=== PATIENT | male | born 1995 | race American Indian/Alaskan Native ===

== ENCOUNTER 2018-02-07 14:03 | Emergency (ER) | payer MEDICAID ==
--- NOTE | 2018-02-07 17:40 | Emergency Department Report ---
ED Rash HPI - HPI Chief Complaint: Skin Rash Stated Complaint: ITCHING ALL OVER BODY Time Seen by Provider: 02/07/18 16:46 Duration: 4 Days Location: Chest, Back, Upper Extremities, Lower Extremities Rash Symptoms: Yes Itching, No Facial Swelling, No Tongue/Oral Swelling, No Breathing Difficulties, No Choking Sensation, No Wheezing/Dyspnea, No Peeling, No Blistering, No Fever, No Lightheaded, No Malaise, No Myalgias Severity: mild Other History: This is a 22-year-old male nontoxic, well nourished in appearance , no acute signs of distress presents to the ED with c/o of red bumps that are itching. Patient stated that he went to his grandma's house 4 days ago and stepped in the bed and then woke up with little bumps all over and itching. Patient denies any pus, drainage. Denies any fevers chills, nausea, vomiting, chest pain, front of breath, headache or stiff neck. Patient denies any allergies or significant past medical history. ED Review of Systems ROS: Stated complaint: ITCHING ALL OVER BODY Other details as noted in HPI Constitutional: denies: chills, fever Eyes: denies: eye pain, eye discharge, vision change ENT: denies: ear pain, throat pain Respiratory: denies: cough, shortness of breath, wheezing Cardiovascular: denies: chest pain, palpitations Endocrine: no symptoms reported Gastrointestinal: denies: abdominal pain, nausea, diarrhea Genitourinary: denies: urgency, dysuria Musculoskeletal: denies: back pain, joint swelling, arthralgia Skin: rash. denies: lesions Neurological: denies: headache, weakness, paresthesias Psychiatric: denies: anxiety, depression Hematological/Lymphatic: denies: easy bleeding, easy bruising ED Past Medical Hx - Past Medical History Previous Medical History?: No - Surgical History Additional Surgical History: FACE REPAIR - Social History Smoking Status: Never Smoker Substance Use Type: None - Medications Home Medications: Home Medications Medication Instructions Recorded Confirmed Last Taken Type Triamcinolone 0.1% [Kenalog 0.1% 1 applic TP TID #1 tube 02/07/18 Unknown Rx CREAM] diphenhydrAMINE [Benadryl CAP] 25 mg PO Q6HR PRN #20 capsule 02/07/18 Unknown Rx Rash Exam - Exam General: Vital signs noted. No distress. Alert and acting appropriately. HEENT: No Periorbital Edema, No Conjuctival Injection, No Chemosis, No Perioral Edema, No Tongue Edema, No Uvular Edema, No Compromised Airway, No Drooling Lungs: Yes Good Air Exchange (Normal Breath Sounds), No Wheezes, No Ronchi, No Stridor, No Cough, No Labored Respirations, No Retractions, No Use of Accessory Muscles, No Other Abnormal Lung Sounds Heart: Yes Regular, No Murmur Skin: Yes Other (circular 0.5 cm bumps with itching and redness throughout body consistent with bedbugs), No Urticarial Rash, No Maculopapular Rash, No Morbilliform rash, No Bulla(e), No Excoriations, No Weeping, No Tenderness, No Erythema, No Edema, No Encrustations Other: Positive: Abdomen Normal, Neurologic Normal, Musculoskeletal Normal ED Course Vital Signs 02/07/18 14:37 Temperature 98 F Pulse Rate 63 Respiratory 16 Rate Blood Pressure 111/72 O2 Sat by Pulse 100 Oximetry - Reevaluation(s) Reevaluation #1: 02/07/18 17:37 Patient is speaking in full sentences with no signs of distress noted. ED Medical Decision Making - Medical Decision Making This is a 22-year-old male that presents with bedbugs. Patient was stable was examined by me. Upon examination there is no signs of cellulitis or abscess formation. There is erythema itching and little bumps that is consistent with bite vidal. Patient was educated and received information from up-to-date on how to treat and prevent bedbugs. Patient received Benadryl at discharge and cortisone cream. Patient was referred to Follow-up with a primary care doctor in 3-5 days or if symptoms worsen and continue return to emergency room as soon as possible. At time of discharge, the patient does not seem toxic or ill in appearance. No acute signs of distress noted. Patient agrees to discharge treatment plan of care. No further questions noted by the patient. Critical care attestation.: If time is entered above; I have spent that time in minutes in the direct care of this critically ill patient, excluding procedure time. ED Disposition Clinical Impression: Bedbug bite Qualifiers: Encounter type: initial encounter Qualified Code(s): W57.XXXA - Bitten or stung by nonvenomous insect and other nonvenomous arthropods, initial encounter Disposition: DC-01 TO HOME OR SELFCARE Is pt being admited?: No Does the pt Need Aspirin: No Condition: Stable Instructions: Diphenhydramine (By mouth) Additional Instructions: Follow-up with a primary care doctor in 3-5 days or if symptoms worsen and continue return to emergency room as soon as possible. Prescriptions: diphenhydrAMINE [Benadryl CAP] 25 mg PO Q6HR PRN #20 capsule PRN Reason: itching Triamcinolone 0.1% [Kenalog 0.1% CREAM] 1 applic TP TID #1 tube Referrals: MYLES JOHN MD [Primary Care Provider] - 3-5 Days PRIMARY CARE, [Referring] - 3-5 Days [facility] [place] [Outside] - 3-5 Days [facility] [Outside] - 3-5 Days Forms: Work/School Release Form(ED)
[2018-02-07 18:06] VITALS: BP 112/80
== END 2018-02-07 18:03 | disposition home or self-care (01) ==
LOC: ED 14:03
DX: L29.9 Pruritus, unspecified (principal); W57.XXXA Bitten or stung by nonvenomous insect and other nonvenomous arthropods, initial encounter; Y93.89 Activity, other specified; Y92.89 Other specified places as the place of occurrence of the external cause; Y99.8 Other external cause status
CPT/HCPCS: 99282

== ENCOUNTER 2020-05-19 01:14 | Emergency (ER) | payer SELFPAY ==
--- NOTE | 2020-05-19 02:03 | XRay Report ---
CHEST 1 VIEW INDICATION / CLINICAL INFORMATION: Chest Pain. COMPARISON: None available. FINDINGS: SUPPORT DEVICES: None. HEART / MEDIASTINUM: No significant abnormality. LUNGS / PLEURA: No significant pulmonary or pleural abnormality. No pneumothorax. ADDITIONAL FINDINGS: No significant additional findings. IMPRESSION: 1. No acute findings. Signer Name: Luis Rice MD Signed: 05/19/2020 1:58 AM Workstation Name: [id number]
--- NOTE | 2020-05-19 04:01 | Emergency Department Report ---
ED General Adult HPI - General Chief complaint: Chest Pain Stated complaint: CHEST PAIN, COUGHING UP BLOOD Time Seen by Provider: 05/19/20 03:13 Source: patient Mode of arrival: Ambulatory Limitations: No Limitations - History of Present Illness Initial comments: 25-year-old -[place] male with no significant past medical history presents emergency department complaining of pain to the left chest region which is worse with deep breaths and range of motion reports no hemoptysis no hematemesis no hematochezia. Ports no fever, chills, sweats no palpitations no nausea or vomiting. Pain is is mild currently rates at a 3 out of 10 at max -: Gradual Location: chest Quality: dull Improves with: none Worsens with: none Associated Symptoms: chest pain. denies: cough, loss of appetite, malaise Treatments Prior to Arrival: none - Related Data Previous Rx's Medication Instructions Recorded Last Taken Type Triamcinolone 0.1% [Kenalog 0.1% 1 applic TP TID #1 tube 02/07/18 Unknown Rx CREAM] diphenhydrAMINE [Benadryl CAP] 25 mg PO Q6HR PRN #20 capsule 02/07/18 Unknown Rx Ibuprofen [Ibuprofen 800] 800 mg PO TID PRN #30 tablet 09/03/18 Unknown Rx Ibuprofen [Motrin] 800 mg PO Q8HR PRN #15 tablet 09/03/18 Unknown Rx Polymyxin B Sulf/Trimethoprim 10 ml OP Q4H 10 Days #1 09/03/18 Unknown Rx [Polytrim Eye Drops] Ketorolac [Toradol] 10 mg PO Q6H PRN #10 tablet 05/19/20 Unknown Rx Allergies Allergy/AdvReac Type Severity Reaction Status Date / Time No Known Allergies Allergy Verified 09/03/18 11:52 ED Review of Systems ROS: Stated complaint: CHEST PAIN, COUGHING UP BLOOD Other details as noted in HPI Comment: All other systems reviewed and negative ED Past Medical Hx - Past Medical History Previous Medical History?: No - Surgical History Past Surgical History?: Yes Additional Surgical History: FACE REPAIR - Social History Smoking Status: Never Smoker - Medications Home Medications: Home Medications Medication Instructions Recorded Confirmed Last Taken Type Triamcinolone 0.1% [Kenalog 0.1% 1 applic TP TID #1 tube 02/07/18 Unknown Rx CREAM] diphenhydrAMINE [Benadryl CAP] 25 mg PO Q6HR PRN #20 capsule 02/07/18 Unknown Rx Ibuprofen [Ibuprofen 800] 800 mg PO TID PRN #30 tablet 09/03/18 Unknown Rx Ibuprofen [Motrin] 800 mg PO Q8HR PRN #15 tablet 09/03/18 Unknown Rx Polymyxin B Sulf/Trimethoprim 10 ml OP Q4H 10 Days #1 09/03/18 Unknown Rx [Polytrim Eye Drops] Ketorolac [Toradol] 10 mg PO Q6H PRN #10 tablet 05/19/20 Unknown Rx ED Physical Exam - General Limitations: No Limitations General appearance: alert, in no apparent distress - Head Head exam: Present: atraumatic, normocephalic - Eye Eye exam: Present: normal appearance - ENT ENT exam: Present: mucous membranes moist - Neck Neck exam: Present: normal inspection - Respiratory Respiratory exam: Present: normal lung sounds bilaterally, chest wall tenderness (Tenderness to the left rib region with palpation. No step-off no lifts heaves or thrills. Tenderness with palpation along the rib border). Absent: respiratory distress - Cardiovascular Cardiovascular Exam: Present: regular rate, normal rhythm. Absent: systolic murmur, diastolic murmur, rubs, gallop - GI/Abdominal GI/Abdominal exam: Present: soft, normal bowel sounds - Rectal Rectal exam: Present: deferred - Extremities Exam Extremities exam: Present: normal inspection - Back Exam Back exam: Present: normal inspection - Neurological Exam Neurological exam: Present: alert, oriented X3 - Psychiatric Psychiatric exam: Present: normal affect, normal mood - Skin Skin exam: Present: warm, dry, intact, normal color. Absent: rash ED Course Vital Signs 05/19/20 01:20 Temperature 98.4 F Pulse Rate 76 Respiratory 20 Rate Blood Pressure 117/72 O2 Sat by Pulse 99 Oximetry ED Medical Decision Making - EKG Data EKG shows normal: sinus rhythm Rate: normal - EKG Data Interpretation: normal EKG - Radiology Data Radiology results: report reviewed Chest x-ray is clear Critical care attestation.: If time is entered above; I have spent that time in minutes in the direct care of this critically ill patient, excluding procedure time. ED Disposition Clinical Impression: Costochondral chest pain Disposition: - TO HOME OR SELFCARE Is pt being admited?: No Does the pt Need Aspirin: No Condition: Stable Instructions: Chest Pain (ED) Prescriptions: Ketorolac [Toradol] 10 mg PO Q6H PRN #10 tablet PRN Reason: Pain Referrals: PRIMARY CARE,MD [Primary Care Provider] - 3-5 Days [facility] [Provider Group] - 3-5 Days
[2020-05-19 04:10] VITALS: BP 113/65
== END 2020-05-19 04:09 | disposition home or self-care (01) ==
LOC: ED 01:14
DX: R07.89 Other chest pain (principal); Z79.899 Other long term (current) drug therapy; Z98.890 Other specified postprocedural states
CPT/HCPCS: 71045; 93005; 99283

== ENCOUNTER 2020-06-25 04:56 | Emergency (ER) | payer SELFPAY ==
[2020-06-25 05:06] VITALS: BP 116/66
--- NOTE | 2020-06-25 05:59 | XRay Report ---
EXAMINATION: Bilateral rib radiograph series with PA chest radiograph CLINICAL INFORMATION: Fall. Trauma. COMPARISON: Chest radiograph, 05/19/2020 FINDINGS: There is no evidence of displaced rib fracture. The accompanying PA chest radiograph demonstrates no evidence of acute pleural or parenchymal abnorma lity. IMPRESSION: No evidence of displaced rib fracture or other acute bony abnormality. Signer Name: Kati Hamlin MD Signed: 06/25/2020 5:54 AM Workstation Name: [id number]
[2020-06-25] MEDS ORDERED: ETOMIDATE 20 MG/10 ML INJ IV ONE (06:10)
[2020-06-25] MEDS ORDERED: ROCURONIUM 50 MG/5 ML INJ IV ONE (06:11)
[2020-06-25] MEDS ORDERED: LACTATED RINGERS 1,000 ML ONE (06:16)
[2020-06-25 07:10] LABS: Basophils # (Auto) 0.1 K/mm3 (0.0-0.1); Basophils % (Auto) 0.8 % (0.0-1.8); Eosinophils # (Auto) 0.3 K/mm3 (0.0-0.4); Eosinophils % (Auto) 4.5 % (0.0-4.3); Hematocrit 38.7 % (35.5-45.6); Hemoglobin 12.7 gm/dl (11.8-15.2); Lymphocytes # (Auto) 3.7 K/mm3 (1.2-5.4); Lymphocytes % (Auto) 48.7 % (13.4-35.0); Mean Corpuscular HGB Conc 33 % (32-34); Mean Corpuscular Volume 89 fl (84-94); Monocytes # (Auto) 0.6 K/mm3 (0.0-0.8); Monocytes % (Auto) 7.6 % (0.0-7.3); Platelet Count 176 K/mm3 (140-440); Red Blood Count 4.33 M/mm3 (3.65-5.03); Red Cell Distribution Width 13.9 % (13.2-15.2)
[2020-06-25 07:20] LABS: Alanine Aminotransferase 21 units/L (7-56); Albumin 4.5 g/dL (3.9-5); BUN/Creatinine Ratio 21; Blood Urea Nitrogen 17 mg/dL (9-20); Calcium 9.5 mg/dL (8.4-10.2); Hemolysis Index 10
== END 2020-06-25 09:42 ==
LOC: ED 04:56
DX: R07.81 Pleurodynia (principal); Z53.21 Procedure and treatment not carried out due to patient leaving prior to being seen by health care provider
CPT/HCPCS: 36415; 71111; 80053; 85025; J7120

== ENCOUNTER 2020-06-29 04:10 | Emergency (ER) | payer SELFPAY ==
[2020-06-29 04:18] VITALS: BP 106/70
[2020-06-29 05:05] LABS: Eosinophils % (Auto) 2.3 % (0.0-4.3); Lymphocytes % (Auto) 41.5 % (13.4-35.0); Monocytes % (Auto) 7.9 % (0.0-7.3)
[2020-06-29 05:19] LABS: Alanine Aminotransferase 13 units/L (7-56); Albumin 4.4 g/dL (3.9-5); BUN/Creatinine Ratio 15; Blood Urea Nitrogen 12 mg/dL (9-20); Calcium 9.4 mg/dL (8.4-10.2); Hemolysis Index 5
[2020-06-29 05:21] LABS: Basophils # (Auto) 0.1 K/mm3 (0.0-0.1); Eosinophils # (Auto) 0.2 K/mm3 (0.0-0.4); Hemoglobin 12.3 gm/dl (11.8-15.2); Lymphocytes # (Auto) 3.5 K/mm3 (1.2-5.4); Mean Corpuscular HGB Conc 33 % (32-34); Mean Corpuscular Volume 89 fl (84-94); Monocytes # (Auto) 0.7 K/mm3 (0.0-0.8); Platelet Count 171 K/mm3 (140-440); Red Blood Count 4.14 M/mm3 (3.65-5.03); Red Cell Distribution Width 13.5 % (13.2-15.2)
[2020-06-29 05:36] LABS: Bilirubin,Urine NEG (Negative); Blood,Urine NEG (Negative); Color,Urine Yellow (Yellow); Protein,Urine <15 mg/dL mg/dL (Negative); RBC,Urine < 1.0 /HPF (0.0-6.0); Urobilinogen,Urine < 2.0 mg/dL (<2.0); WBC,Urine < 1.0 /HPF (0.0-6.0)
== END 2020-06-29 06:05 | disposition left against medical advice (07) ==
LOC: ED 04:10
DX: R11.0 Nausea (principal); Z53.21 Procedure and treatment not carried out due to patient leaving prior to being seen by health care provider
CPT/HCPCS: 36415; 80053; 81001; 85025

== ENCOUNTER 2020-06-29 20:05 | Emergency (ER) | payer SELFPAY ==
[2020-06-29 20:17] VITALS: BP 110/62
[2020-06-29] MEDS ORDERED: HYDROcodone/ACETAMINOPHEN 10-325MG TAB PO ONE (20:47)
--- NOTE | 2020-06-29 20:59 | Emergency Department Report ---
ED General Adult HPI - General Chief complaint: Upper Respiratory Infection Stated complaint: WEAK, RIGHT RIB PAIN, DIFFICULTY IN BREATHING Time Seen by Provider: 06/29/20 20:43 Source: patient Mode of arrival: Ambulatory Limitations: No Limitations - History of Present Illness Initial comments: This is a 25-year-old man nontoxic, well nourished in appearance, no acute signs of distress presents to the ED with c/o of generalized weakness and right rib pain times couple days. Patient stated that he hit his rib against a forklift. Patient denies any other trauma. Stated has some coughing. Denies any shortness of breath, fever, chills, nausea, vomiting, headache, stiff neck, abdominal pain, neck or back pain. Denies any other complaints. Denies any allergies. -: days(s) Location: chest, right Radiation: non-radiation Severity scale (0 -10): 8 Quality: aching Consistency: constant Improves with: none Worsens with: other (palpation) Associated Symptoms: cough. denies: confusion, chest pain, diaphoresis, headaches, loss of appetite, malaise, nausea/vomiting, rash, seizure, shortness of breath, syncope, weakness Treatments Prior to Arrival: none - Related Data Previous Rx's Medication Instructions Recorded Last Taken Type Triamcinolone 0.1% [Kenalog 0.1% 1 applic TP TID #1 tube 02/07/18 Unknown Rx CREAM] diphenhydrAMINE [Benadryl CAP] 25 mg PO Q6HR PRN #20 capsule 02/07/18 Unknown Rx Ibuprofen [Ibuprofen 800] 800 mg PO TID PRN #30 tablet 09/03/18 Unknown Rx Ibuprofen [Motrin] 800 mg PO Q8HR PRN #15 tablet 09/03/18 Unknown Rx Polymyxin B Sulf/Trimethoprim 10 ml OP Q4H 10 Days #1 09/03/18 Unknown Rx [Polytrim Eye Drops] Ketorolac [Toradol] 10 mg PO Q6H PRN #10 tablet 05/19/20 Unknown Rx Naproxen 500 mg PO Q12H PRN #12 tablet 06/29/20 Unknown Rx Allergies Allergy/AdvReac Type Severity Reaction Status Date / Time No Known Allergies Allergy Verified 06/29/20 20:10 ED Review of Systems ROS: Stated complaint: WEAK, RIGHT RIB PAIN, DIFFICULTY IN BREATHING Other details as noted in HPI Constitutional: denies: chills, fever Eyes: denies: eye pain, eye discharge, vision change ENT: denies: ear pain, throat pain Respiratory: cough. denies: shortness of breath, wheezing Cardiovascular: denies: chest pain, palpitations Endocrine: no symptoms reported Gastrointestinal: denies: abdominal pain, nausea, diarrhea Genitourinary: denies: urgency, dysuria Musculoskeletal: denies: back pain, joint swelling, arthralgia Skin: denies: rash, lesions Neurological: denies: headache, weakness, paresthesias Psychiatric: denies: anxiety, depression Hematological/Lymphatic: denies: easy bleeding, easy bruising ED Past Medical Hx - Past Medical History Previous Medical History?: No - Surgical History Additional Surgical History: FACE REPAIR - Social History Smoking Status: Current Every Day Smoker Substance Use Type: Alcohol - Medications Home Medications: Home Medications Medication Instructions Recorded Confirmed Last Taken Type Triamcinolone 0.1% [Kenalog 0.1% 1 applic TP TID #1 tube 02/07/18 Unknown Rx CREAM] diphenhydrAMINE [Benadryl CAP] 25 mg PO Q6HR PRN #20 capsule 02/07/18 Unknown Rx Ibuprofen [Ibuprofen 800] 800 mg PO TID PRN #30 tablet 09/03/18 Unknown Rx Ibuprofen [Motrin] 800 mg PO Q8HR PRN #15 tablet 09/03/18 Unknown Rx Polymyxin B Sulf/Trimethoprim 10 ml OP Q4H 10 Days #1 09/03/18 Unknown Rx [Polytrim Eye Drops] Ketorolac [Toradol] 10 mg PO Q6H PRN #10 tablet 05/19/20 Unknown Rx Naproxen 500 mg PO Q12H PRN #12 tablet 06/29/20 Unknown Rx ED Physical Exam - General Limitations: No Limitations General appearance: alert, in no apparent distress - Head Head exam: Present: atraumatic, normocephalic - Eye Eye exam: Present: normal appearance - Neck Neck exam: Present: normal inspection, full ROM. Absent: tenderness, meni ngismus, lymphadenopathy - Respiratory Respiratory exam: Present: normal lung sounds bilaterally, chest wall tenderness (right lateral rib). Absent: respiratory distress, wheezes, rales, rhonchi, stridor, accessory muscle use, decreased breath sounds, prolonged expiratory - Cardiovascular Cardiovascular Exam: Present: regular rate, normal rhythm, normal heart sounds. Absent: bradycardia, tachycardia, irregular rhythm, systolic murmur, diastolic murmur, rubs, gallop - GI/Abdominal GI/Abdominal exam: Present: soft, normal bowel sounds. Absent: distended, tenderness, guarding, rebound, rigid, diminished bowel sounds - Extremities Exam Extremities exam: Present: normal inspection, full ROM - Back Exam Back exam: Present: normal inspection, full ROM. Absent: tenderness, CVA tenderness (R), CVA tenderness (L), muscle spasm, paraspinal tenderness, vertebral tenderness, rash noted - Neurological Exam Neurological exam: Present: alert, oriented X3, normal gait - Psychiatric Psychiatric exam: Present: normal affect, normal mood - Skin Skin exam: Present: warm, dry, intact, normal color. Absent: rash ED Course Vital Signs 06/29/20 20:10 Temperature 98.0 F Pulse Rate 82 Respiratory 18 Rate Blood Pressure 110/62 O2 Sat by Pulse 97 Oximetry - Reevaluation(s) Reevaluation #1: 06/29/20 20:59 Patient is speaking in full sentences with no signs of distress noted. ED Medical Decision Making - Lab Data Result diagrams: 06/29/20 21:54 06/29/20 21:54 Lab Results 06/29/20 06/29/20 Range/Units 21:54 21:54 WBC 8.5 (4.5-11.0) K/mm3 RBC 3.98 (3.65-5.03) M/mm3 Hgb 11.8 (11.8-15.2) gm/dl Hct 35.2 L (35.5-45.6) % MCV 88 (84-94) fl MCH 30 (28-32) pg MCHC 34 (32-34) % RDW 13.5 (13.2-15.2) % Plt Count 168 (140-440) K/mm3 Lymph % (Auto) 48.2 H (13.4-35.0) % Gulf % (Auto) 8.7 H (0.0-7.3) % Eos % (Auto) 3.1 (0.0-4.3) % Baso % (Auto) 1.3 (0.0-1.8) % Lymph # 4.1 (1.2-5.4) K/mm3 Gulf # 0.7 (0.0-0.8) K/mm3 Eos # 0.3 (0.0-0.4) K/mm3 Baso # 0.1 (0.0-0.1) K/mm3 Seg Neutrophils % 38.7 L (40.0-70.0) % Seg Neutrophils # 3.3 (1.8-7.7) K/mm3 Sodium 138 (137-145) mmol/L Potassium 3.5 L (3.6-5.0) mmol/L Chloride 98.9 (98-107) mmol/L Carbon Dioxide 27 (22-30) mmol/L Anion Gap 16 mmol/L BUN 17 (9-20) mg/dL Creatinine 0.7 L (0.8-1.3) mg/dL Estimated GFR > 60 ml/min BUN/Creatinine Ratio 24 % Glucose 102 H (75-100) mg/dL Calcium 9.6 (8.4-10.2) mg/dL - Radiology Data Referring Physician: DEN WOLFF Patient Name: TSEWART ABBASI Date of : 1995 Sex: Male Report Date: 2020-06-29 Report Status: Finalized [facility] [address] [place] [address] XRay Report Signed Patient: STEWART ABBASI MR#: [id number] : 0 1995 Acct:[id number] Age/Sex: 25 / M ADM Date: 06/29/20 Loc: ED Attending Dr: Ordering Physician: DEN WOLFF NP Date of Service: 06/29/20 Procedure(s): XR ribs UNI w PA Chest 3+V RT Accession Number(s): [id number] cc: DEN WOLFF NP Fluoro Time In Minutes: RIGHT RIBS for VIEWS PA CHEST RA DIOGRAPH INDICATION / CLINICAL INFORMATION: Right mid chest pain and cough. COMPARISON: Right ribs 06/25/2020 FINDINGS: RIBS: No acute, displaced right rib fracture or other acute abnormality. Chest: Cardiomediastinal silhouette: Normal cardiac size. Normal mediastinal contours. LUNGS: No acute findings. No pneumothorax. Signer Name: Chuy Hameed MD Signed: 06/29/2020 9:37 PM Workstation Name: [id number] Transcribed By: TL Dictated By: Chuy Hameed MD Electronically Authenticated By: Chuy Hameed MD Signed Date/Time: 06/29/202136 DD/ 35 TD/TT: - Medical Decision Making 25-year-old male that presents with right rib contusion. Patient is stable and was examined by me. Patient is notified of the x-ray results with no questions noted by the patient. Patient's pain is currently under control. Patient stated family member will drive the patient home after discharge. Labs are unremarkable. Patient was instructed to follow-up with a primary care doctor in 3-5 days or if symptoms worsen and continue return to emergency room as soon as possible. At time of discharge, the patient does not seem toxic or ill in romero earance. No acute signs of distress noted. Patient agrees to discharge treatment plan of care. No further questions noted by the patient. Critical care attestation.: If time is entered above; I have spent that time in minutes in the direct care of this critically ill patient, excluding procedure time. ED Disposition Clinical Impression: Contusion of rib on right side Qualifiers: Encounter type: initial encounter Qualified Code(s): S20.211A - Contusion of right front wall of thorax, initial encounter Disposition: - TO HOME OR SELFCARE Is pt being admited?: No Does the pt Need Aspirin: No Condition: Stable Additional Instructions: Follow-up with a primary care doctor in 3-5 days or if symptoms worsen and continue return to emergency room as soon as possible. Prescriptions: Naproxen 500 mg PO Q12H PRN #12 tablet PRN Reason: Pain , Severe (7-10) Referrals: PRIMARY MD [facility] [Primary Care Provider] - 3-5 Days RAJNI WILLS MD [Staff Physician] - 3-5 Days Forms: Work/School Release Form(ED)
--- NOTE | 2020-06-29 21:41 | XRay Report ---
RIGHT RIBS for VIEWS PA CHEST RADIOGRAPH INDICATION / CLINICAL INFORMATION: Right mid chest pain and cough. COMPARISON: Right ribs 06/25/2020 FINDINGS: RIBS: No acute, displaced right rib fracture or other acute abnormality. Chest: Cardiomediastinal silhouette: Normal cardiac size. Normal mediastinal contours. LUNGS: No acute findings. No pneumothorax. Signer Name: Chuy Hameed MD Signed: 06/29/2020 9:37 PM Workstation Name: [id number]
[2020-06-29 22:23] LABS: Basophils # (Auto) 0.1 K/mm3 (0.0-0.1); Basophils % (Auto) 1.3 % (0.0-1.8); Eosinophils # (Auto) 0.3 K/mm3 (0.0-0.4); Eosinophils % (Auto) 3.1 % (0.0-4.3); Hematocrit 35.2 % (35.5-45.6); Hemoglobin 11.8 gm/dl (11.8-15.2); Lymphocytes # (Auto) 4.1 K/mm3 (1.2-5.4); Lymphocytes % (Auto) 48.2 % (13.4-35.0); Mean Corpuscular HGB Conc 34 % (32-34); Mean Corpuscular Volume 88 fl (84-94); Monocytes # (Auto) 0.7 K/mm3 (0.0-0.8); Monocytes % (Auto) 8.7 % (0.0-7.3); Platelet Count 168 K/mm3 (140-440); Red Blood Count 3.98 M/mm3 (3.65-5.03); Red Cell Distribution Width 13.5 % (13.2-15.2)
[2020-06-29 22:43] LABS: Blood Urea Nitrogen 17 mg/dL (9-20); Calcium 9.6 mg/dL (8.4-10.2); Hemolysis Index 10
[2020-06-29 22:53] LABS: BUN/Creatinine Ratio 24
== END 2020-06-29 23:05 | disposition home or self-care (01) ==
LOC: ED 20:05
DX: S20.211A Contusion of right front wall of thorax, initial encounter (principal); F17.200 Nicotine dependence, unspecified, uncomplicated; Z79.899 Other long term (current) drug therapy; Z98.890 Other specified postprocedural states; X58.XXXA Exposure to other specified factors, initial encounter; Y93.89 Activity, other specified; Y92.89 Other specified places as the place of occurrence of the external cause; Y99.8 Other external cause status
CPT/HCPCS: 36415; 80048; 85025

== ENCOUNTER 2020-07-29 22:48 | Emergency (ER) | payer SELFPAY ==
[2020-07-29 23:14] VITALS: BP 112/71
[2020-07-30] MEDS ORDERED: predniSONE 20 MG TAB PO ONE (00:46)
[2020-07-30] MEDS ORDERED: IBUPROFEN 600 MG TAB PO ONE (00:46)
--- NOTE | 2020-07-30 01:09 | Emergency Department Report ---
- General Chief Complaint: Upper Respiratory Infection Stated Complaint: COUGH BODY WEAKNESS SOB Source: patient Mode of arrival: Ambulatory Limitations: No Limitations - History of Present Illness Initial Comments: Patient is a 25-year-old -Chinese male with a history of tobacco abuse who presents to the ED with complaint of acute onset persistent sore throat, diffuse body aches and pains, persistent cough with white phlegm and intermittent wheezing and shortness of breath for the last 1 week. Patient states that he has been taking cugg-[id number] medications with no relief. Patient denies fever, chills, nausea, vomiting, chest pain, headache, abdominal pain, diarrhea, dysuria, change in vision, dizziness, syncope, back pain or testicular pain. MD Complaint: cough, sore throat, other (dyspnea, wheezing) -: Sudden, week(s) (1) Severity: moderate Severity scale (0 -10): 4 Quality: aching Consistency: intermittent Improves With: nothing Worsens With: nothing Context: sick contacts Associated Symptoms: denies other symptoms, rhinorrhea, nasal congestion, sore throat, cough, shortness of breath. denies: fever, chills, myalgias, carol ann phoresis, headache, stiff neck, chest pain, abdominal pain, vomiting, diarrhea, dysuria, rash, right sweats, weight loss, epistaxis, ear pain, other Treatments Prior to Arrival: none - Related Data Previous Rx's Medication Instructions Recorded Last Taken Type Triamcinolone 0.1% [Kenalog 0.1% 1 applic TP TID #1 tube 02/07/18 Unknown Rx CREAM] diphenhydrAMINE [Benadryl CAP] 25 mg PO Q6HR PRN #20 capsule 02/07/18 Unknown Rx Ibuprofen [Ibuprofen 800] 800 mg PO TID PRN #30 tablet 09/03/18 Unknown Rx Ibuprofen [Motrin] 800 mg PO Q8HR PRN #15 tablet 09/03/18 Unknown Rx Polymyxin B Sulf/Trimethoprim 10 ml OP Q4H 10 Days #1 09/03/18 Unknown Rx [Polytrim Eye Drops] Ketorolac [Toradol] 10 mg PO Q6H PRN #10 tablet 05/19/20 Unknown Rx Naproxen 500 mg PO Q12H PRN #12 tablet 06/29/20 Unknown Rx Albuterol Sulfate [Proventil Hfa] 1 - 2 puff IH Q6H PRN #1 hfa.aer.ad 07/30/20 Unknown Rx Azithromycin [Zithromax Z-MICHELLE] 250 mg PO DAILY #6 tablet 07/30/20 Unknown Rx Brompheniramine/Pseudoephed/Dm 5 ml PO Q6H PRN #118 ml 07/30/20 Unknown Rx [Bromfed Dm Cough Syrup] Ibuprofen [Motrin] 600 mg PO Q8H PRN #20 tablet 07/30/20 Unknown Rx predniSONE [Deltasone] 40 mg PO QDAY #12 tab 07/30/20 Unknown Rx Allergies Allergy/AdvReac Type Severity Reaction Status Date / Time No Known Allergies Allergy Verified 06/29/20 20:10 ED Review of Systems ROS: Stated complaint: COUGH BODY WEAKNESS SOB Other details as noted in HPI Constitutional: denies: chills, fever Eyes: denies: eye pain, eye discharge, vision change ENT: congestion. denies: ear pain, throat pain Respiratory: cough, shortness of breath, wheezing Cardiovascular: denies: chest pain, palpitations Endocrine: no symptoms reported Gastrointestinal: denies: abdominal pain, nausea, vomiting, diarrhea Genitourinary: denies: urgency, dysuria Musculoskeletal: denies: back pain, joint swelling, arthralgia Skin: denies: rash, lesions Neurological: denies: headache, weakness, paresthesias Psychiatric: denies: anxiety, depression Hematological/Lymphatic: denies: easy bleeding, easy bruising ED Past Medical Hx - Past Medical History Previous Medical History?: No - Surgical History Past Surgical History?: Yes Additional Surgical History: FACE REPAIR - Social History Smoking Status: Never Smoker Substance Use Type: None - Medications Home Medications: Home Medications Medication Instructions Recorded Confirmed Last Taken Type Triamcinolone 0.1% [Kenalog 0.1% 1 applic TP TID #1 tube 02/07/18 Unknown Rx CREAM] diphenhydrAMINE [Benadryl CAP] 25 mg PO Q6HR PRN #20 capsule 02/07/18 Unknown Rx Ibuprofen [Ibuprofen 800] 800 mg PO TID PRN #30 tablet 09/03/18 Unknown Rx Ibuprofen [Motrin] 800 mg PO Q8HR PRN #15 tablet 09/03/18 Unknown Rx Polymyxin B Sulf/Trimethoprim 10 ml OP Q4H 10 Days #1 09/03/18 Unknown Rx [Polytrim Eye Drops] Ketorolac [Toradol] 10 mg PO Q6H PRN #10 tablet 05/19/20 Unknown Rx Naproxen 500 mg PO Q12H PRN #12 tablet 06/29/20 Unknown Rx Albuterol Sulfate [Proventil Hfa] 1 - 2 puff IH Q6H PRN #1 hfa.aer.ad 07/30/20 Unknown Rx Azithromycin [Zithromax Z-MICHELLE] 250 mg PO DAILY #6 tablet 07/30/20 Unknown Rx Brompheniramine/Pseudoephed/Dm 5 ml PO Q6H PRN #118 ml 07/30/20 Unknown Rx [Bromfed Dm Cough Syrup] Ibuprofen [Motrin] 600 mg PO Q8H PRN #20 tablet 07/30/20 Unknown Rx predniSONE [Deltasone] 40 mg PO QDAY #12 tab 07/30/20 Unknown Rx ED Physical Exam - General Limitations: No Limitations General appearance: alert, in no apparent distress - Head Head exam: Present: atraumatic, normocephalic, normal inspection - Eye Eye exam: Present: normal appearance, PERRL, EOMI Pupils: Present: normal accommodation - ENT ENT exam: Present: normal exam, normal orophraynx, mucous membranes moist, TM's normal bilaterally, normal external ear exam - Neck Neck exam: Present: normal inspection, full ROM - Respiratory Respiratory exam: Present: normal lung sounds bilaterally. Absent: respiratory distress, wheezes, rales, rhonchi, chest wall tenderness, accessory muscle use, decreased breath sounds - Cardiovascular Cardiovascular Exam: Present: regular rate, normal rhythm, normal heart sounds. Absent: systolic murmur, diastolic murmur, rubs, gallop - GI/Abdominal GI/Abdominal exam: Present: soft, normal bowel sounds. Absent: distended, tenderness, guarding, rebound, hyperactive bowel sounds, hypoactive bowel sounds, mass - Extremities Exam Extremities exam: Present: normal inspection, full ROM, normal capillary refill - Back Exam Back exam: Present: normal inspection, full ROM. Absent: tenderness, CVA tenderness (R), CVA tenderness (L), muscle spasm, paraspinal tenderness, vertebral tenderness - Neurological Exam Neurological exam: Present: alert, oriented X3, CN II-XII intact, normal gait, reflexes normal - Psychiatric Psychiatric exam: Present: normal affect, normal mood - Skin Skin exam: Present: warm, dry, intact, normal color. Absent: rash ED Course Vital Signs 07/29/20 23:13 Temperature 98.4 F Pulse Rate 79 Respiratory 16 Rate Blood Pressure 112/71 O2 Sat by Pulse 98 Oximetry ED Medical Decision Making - Radiology Data Radiology results: report reviewed, image reviewed Findings [facility] [address] [place] [address] XRay Report Signed Patient: STEWART ABBASI MR#: [id number] : 1995 Acct:[id number] Age/Sex: 25 / M ADM Date: 07/29/20 Loc: ED Attending Dr: Ordering Physician: EVE MEDRANO Date of Service: 07/30/20 Procedure(s): XR chest routine 2V Accession Number(s): [id number] cc: EVE MEDRANO Fluoro Time In Minutes: CHEST 2 VIEWS INDICATION / CLINICAL INFORMATION: cough. COMPARISON: 05/19/2020 FINDINGS: SUPPORT DEVICES: None. HEART / MEDIASTINUM: No significant abnormality. LUNGS / PLEURA: No significant pulmonary or pleural abnormality. No pneumothorax. ADDITIONAL FINDINGS: No significant additional findings. IMPRESSION: 1. No acute findings. Signer Name: Reno Dong MD Signed: 07/30/2020 1:24 AM Workstation Name: [id number] Transcribed By: LIZA Dictated By: Reno Dong MD Electronically Authenticated By: Reno Dong MD Signed Date/Time: 07/30/20123 DD/ 2 TD/TT: - Medical Decision Making This is a 25-year-old -Chinese male with a history of tobacco abuse who presents to the ED with complaint of acute onset persistent sore throat, diffuse body aches and pains, persistent cough with white phlegm and intermittent wheezing and shortness of breath for the last 1 week. Patient states that he has been taking gire-yky-iczquab medications with no relief. In the ED, patient is alert and oriented x3 and is not in distress. Patient was treated for pain and also given oral prednisone in the ED. Chest x-ray shows no acute cardiopulmonary abnormalities or pneumonitis. Patient was discharged home on medications and advised to follow-up with his primary care physician in 5 to 7 days for reevaluation or return to the ED immediately if symptoms get worse. - Differential Diagnosis Bronchitis; Pneumonia; Pharyngitis; URI Critical care attestation.: If time is entered above; I have spent that time in minutes in the direct care of this critically ill patient, excluding procedure time. ED Disposition Clinical Impression: Acute pharyngitis Qualifiers: Pharyngitis/tonsillitis etiology: other specified organisms Qualified Code(s): J02.8 - Acute pharyngitis due to other specified organisms Acute bronchitis Qualifiers: Bronchitis organism: other organism Qualified Code(s): J20.8 - Acute bronchitis due to other specified organisms Disposition: DC- TO HOME OR SELFCARE Is pt being admited?: No Does the pt Need Aspirin: No Condition: Stable Instructions: Pharyngitis (ED), Acute Bronchitis (ED) Additional Instructions: Take medications with food, drink plenty of fluids and follow up with your Primary Care Physician in 7-10 days for reevaluation. Return to the ED immedia tely if symptoms get worse Prescriptions: Brompheniramine/Pseudoephed/Dm [Bromfed Dm Cough Syrup] 5 ml PO Q6H PRN #118 ml PRN Reason: Cough predniSONE [Deltasone] 40 mg PO QDAY #12 tab Ibuprofen [Motrin] 600 mg PO Q8H PRN #20 tablet PRN Reason: Pain Albuterol Sulfate [Proventil Hfa] 1 - 2 puff IH Q6H PRN #1 hfa.aer.ad PRN Reason: Dyspnea Azithromycin [Zithromax Z-MICHELLE] 250 mg PO DAILY #6 tablet Referrals: [facility] [Provider Group] - 7-10 days Forms: Work/School Release Form(ED) Time of Disposition: :12 Print Language: TELUGU
--- NOTE | 2020-07-30 01:28 | XRay Report ---
CHEST 2 VIEWS INDICATION / CLINICAL INFORMATION: cough. COMPARISON: 05/19/2020 FINDINGS: SUPPORT DEVICES: None. HEART / MEDIASTINUM: No significant abnormality. LUNGS / PLEURA: No significant pulmonary or pleural abnormality. No pneumothorax. ADDITIONAL FINDINGS: No significant additional findings. IMPRESSION: 1. No acute findings. Signer Name: Reno Dong MD Signed: 07/30/2020 1:24 AM Workstation Name: [email or web address]
== END 2020-07-30 03:00 | disposition home or self-care (01) ==
LOC: ED 22:48
DX: J02.9 Acute pharyngitis, unspecified (principal); J20.8 Acute bronchitis due to other specified organisms; Z79.1 Long term (current) use of non-steroidal anti-inflammatories (NSAID); Z79.899 Other long term (current) drug therapy
CPT/HCPCS: 71046; 99283; J7512

== ENCOUNTER 2021-07-12 13:17 | Emergency (ER) | payer SELFPAY ==
[2021-07-12 14:47] VITALS: BP 128/84
--- NOTE | 2021-07-12 15:05 | Emergency Department Report ---
- General Chief Complaint: Upper Respiratory Infection Stated Complaint: COUGH/THROAT PAIN/BACK PAIN Time Seen by Provider: 07/12/21 14:59 Source: patient Mode of arrival: Ambulatory Limitations: No Limitations - History of Present Illness Initial Comments: Patient is a 26-year-old F [place] male who is presenting with 2 days of cough cold congestion and some sinus irritation. Patient states the cough is wet sounding but is nonproductive. Patient states when he coughs he says he has some pain in his ribs. No known exposure to COVID-19 however the patient is not vaccinated. Patient states "I know I don't have Covid because I can still taste and smell". Patient denies nausea vomiting diarrhea headache or sore throat - Related Data Previous Rx's Medication Instructions Recorded Last Taken Type Triamcinolone 0.1% [Kenalog 0.1% 1 applic TP TID #1 tube 02/07/18 Unknown Rx CREAM] diphenhydrAMINE [Benadryl CAP] 25 mg PO Q6HR PRN #20 capsule 02/07/18 Unknown Rx Ibuprofen [Ibuprofen 800] 800 mg PO TID PRN #30 tablet 09/03/18 Unknown Rx Ibuprofen [Motrin] 800 mg PO Q8HR PRN #15 tablet 09/03/18 Unknown Rx Polymyxin B Sulf/Trimethoprim 10 ml OP Q4H 10 Days #1 09/03/18 Unknown Rx [Polytrim Eye Drops] Ketorolac [Toradol] 10 mg PO Q6H PRN #10 tablet 05/19/20 Unknown Rx Naproxen 500 mg PO Q12H PRN #12 tablet 06/29/20 Unknown Rx Albuterol Sulfate [Proventil Hfa] 1 - 2 puff IH Q6H PRN #1 hfa.aer.ad 07/30/20 Unknown Rx Azithromycin [Zithromax Z-MICHELLE] 250 mg PO DAILY #6 tablet 07/30/20 Unknown Rx Brompheniramine/Pseudoephed/Dm 5 ml PO Q6H PRN #118 ml 07/30/20 Unknown Rx [Bromfed Dm Cough Syrup] Ibuprofen [Motrin] 600 mg PO Q8H PRN #20 tablet 07/30/20 Unknown Rx predniSONE [Deltasone] 40 mg PO QDAY #12 tab 07/30/20 Unknown Rx Albuterol Mdi (or & Nicu Only) 2 puff IH QID PRN #1 inhalation 07/12/21 Unknown Rx [ProAir HFA Inhaler] Benzonatate [Tessalon Perles] 100 mg PO Q8HR #10 capsule 07/12/21 Unknown Rx predniSONE [Deltasone] 50 mg PO QDAY #5 tab 07/12/21 Unknown Rx Allergies Allergy/AdvReac Type Severity Reaction Status Date / Time No Known Allergies Allergy Verified 06/29/20 20:10 ED Review of Systems ROS: Stated complaint: COUGH/THROAT PAIN/BACK PAIN Other details as noted in HPI Comment: All other systems reviewed and negative ED Past Medical Hx - Past Medical History Previous Medical History?: No - Surgical History Past Surgical History?: Yes Additional Surgical History: FACE REPAIR - Social History Smoking Status: Never Smoker Substance Use Type: None - Medications Home Medications: Home Medications Medication Instructions Recorded Confirmed Last Taken Type Triamcinolone 0.1% [Kenalog 0.1% 1 applic TP TID #1 tube 02/07/18 Unknown Rx CREAM] diphenhydrAMINE [Benadryl CAP] 25 mg PO Q6HR PRN #20 capsule 02/07/18 Unknown Rx Ibuprofen [Ibuprofen 800] 800 mg PO TID PRN #30 tablet 09/03/18 Unknown Rx Ibuprofen [Motrin] 800 mg PO Q8HR PRN #15 tablet 09/03/18 Unknown Rx Polymyxin B Sulf/Trimethoprim 10 ml OP Q4H 10 Days #1 09/03/18 Unknown Rx [Polytrim Eye Drops] Ketorolac [Toradol] 10 mg PO Q6H PRN #10 tablet 05/19/20 Unknown Rx Naproxen 500 mg PO Q12H PRN #12 tablet 06/29/20 Unknown Rx Albuterol Sulfate [Proventil Hfa] 1 - 2 puff IH Q6H PRN #1 hfa.aer.ad 07/30/20 Unknown Rx Azithromycin [Zithromax Z-MICHELLE] 250 mg PO DAILY #6 tablet 07/30/20 Unknown Rx Brompheniramine/Pseudoephed/Dm 5 ml PO Q6H PRN #118 ml 07/30/20 Unknown Rx [Bromfed Dm Cough Syrup] Ibuprofen [Motrin] 600 mg PO Q8H PRN #20 tablet 07/30/20 Unknown Rx predniSONE [Deltasone] 40 mg PO QDAY #12 tab 07/30/20 Unknown Rx Albuterol Mdi (or & Nicu Only) 2 puff IH QID PRN #1 inhalation 07/12/21 Unknown Rx [ProAir HFA Inhaler] Benzonatate [Tessalon Perles] 100 mg PO Q8HR #10 capsule 07/12/21 Unknown Rx predniSONE [Deltasone] 50 mg PO QDAY #5 tab 07/12/21 Unknown Rx ED Physical Exam - General Limitations: No Limitations General appearance: alert, in no apparent distress - Head Head exam: Present: atraumatic, normocephalic - Eye Eye exam: Present: normal appearance - ENT ENT exam: Present: mucous membranes moist - Neck Neck exam: Present: normal inspection - Respiratory Respiratory exam: Present: normal lung sounds bilaterally. Absent: respiratory distress, wheezes, rales, rhonchi - Cardiovascular Cardiovascular Exam: Present: regular rate, normal rhythm, normal heart sounds. Absent: systolic murmur, diastolic murmur, rubs, gallop - GI/Abdominal GI/Abdominal exam: Present: soft, normal bowel sounds. Absent: distended, tenderness, guarding, rebound - Rectal Rectal exam: Present: deferred - Extremities Exam Extremities exam: Present: normal inspection - Back Exam Back exam: Present: normal inspection - Neurological Exam Neurological exam: Present: alert, oriented X3 - Psychiatric Psychiatric exam: Present: normal affect, normal mood - Skin Skin exam: Present: warm, dry, intact, normal color. Absent: rash ED Course Vital Signs 07/12/21 14:45 Temperature 98.4 F Pulse Rate 82 Respiratory 16 Rate Blood Pressure 128/84 [Left] O2 Sat by Pulse 99 Oximetry ED Medical Decision Making - Medical Decision Making Patient is a 26-year-old F [place] male with upper respiratory symptoms. Lungs are clear his O2 saturation is within normal limits. Patient does not warrant advanced imaging at this time. Will place the patient on some medication for symptomatic relief. Urged the patient to get outpatient COVID-19 testing. Also encouraged the patient if he is negative for COVID-19 at this time to be vaccinated. Patient seem receptive patient will be discharged home. Critical care attestation.: If time is entered above; I have spent that time in minutes in the direct care of this critically ill patient, excluding procedure time. ED Disposition Clinical Impression: Suspected COVID-19 virus infection, Acute bronchitis Disposition: 01 HOME / SELF CARE / HOMELESS Is pt being admited?: No Does the pt Need Aspirin: No Condition: Stable Instructions: Acute Bronchitis (ED), Acute Bronchitis, Adult, [id number], COVID-19 Frequently Asked Questions, COVID-19: How to Protect Yourself and Others - [facility] Referrals: MICHAELA KING MD [Referring] - 3-5 Days Time of Disposition: 15:07
== END 2021-07-12 15:50 | disposition home or self-care (01) ==
LOC: ED 13:17
DX: J20.9 Acute bronchitis, unspecified (principal); Z20.822 Contact with and (suspected) exposure to COVID-19
CPT/HCPCS: 99282

== ENCOUNTER 2021-12-13 11:14 | Emergency (ER) | payer SELFPAY ==
[2021-12-13] MEDS ORDERED: ONDANSETRON 4 MG ODT TAB PO ONE (12:28)
[2021-12-13 14:00] VITALS: BP 142/88
== END 2021-12-13 13:13 | disposition home or self-care (01) ==
LOC: ED 11:14
DX: R11.10 Vomiting, unspecified (principal)
CPT/HCPCS: 99282; J3490; Q0162

== ENCOUNTER 2021-12-26 20:19 | Emergency (ER) | payer SELFPAY ==
[2021-12-26] MEDS ORDERED: IBUPROFEN 600 MG TAB PO ONE (22:24)
[2021-12-26] MEDS ORDERED: ACETAMINOPHEN 500 MG TAB PO ONE (22:24)
--- NOTE | 2021-12-26 22:52 | XRay Report ---
XR ribs UNI w PA Chest 3+V RT INDICATION: right rib pain. COMPARISON: Chest radiograph 07/30/2020 FINDINGS: No acute skeletal abnormality. No acute pulmonary or pleural findings. IMPRESSION: 1. No acute findings. Signer Name: Ismael Mckenzie MD Signed: 12/26/2021 10:48 PM Workstation Name: [id number]
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
[2021-12-27 00:06] VITALS: BP 116/68
--- NOTE | 2021-12-29 13:07 | Electrocardiograph Report ---
[facility] Test Date: 2021-12-26 Test Time: 20:31:33 Pat Name: STEWART ABBASI Department: Room: Gender: M [employer] Scientist: ROSELYN : 1995 Requested By: VISH BOWMAN Order Number: [id number] Reading MD: Philomena Hernández Measurements Intervals [place] Rate: 71 P: 60 OR: 168 QRS: 74 QRSD: 90 T: 27 QT: 348 QTc: 379 Interpretive Statements Sinus rhythm No previous ECG available for comparison Electronically Signed On 12-29-2021 13:07:07 EST by Philomena Hernández
== END 2021-12-27 00:07 | disposition home or self-care (01) ==
LOC: ED 20:19
DX: S29.011A Strain of muscle and tendon of front wall of thorax, initial encounter (principal); S20.211A Contusion of right front wall of thorax, initial encounter; Z79.899 Other long term (current) drug therapy; X50.0XXA Overexertion from strenuous movement or load, initial encounter; Y93.89 Activity, other specified; Y92.89 Other specified places as the place of occurrence of the external cause; Y99.0 Civilian activity done for income or pay
CPT/HCPCS: 93005; 93010; 99283